=== PATIENT | male | born 1975 | race Caucasian/White ===

== ENCOUNTER 2017-06-07 18:29 | Emergency (ER) | payer OTHER ==
[~2017-06-07] VITALS: Ht 180.3 cm; Wt 89.3 kg
[~2017-06-07 18:29] MED LIST: NO MEDS
[2017-06-07 19:01] LABS: HEMATOCRIT 46.7 % (38.0-50.0); HEMOGLOBIN 15.6 G/DL (12.5-16.6); MCH 29.7 PG (29.0-34.0); MCHC 33.4 G/DL (30.0-36.0); PLATELET COUNT 234 K/uL (156-360); RBC DIS.WIDTH-CV 13.9 % (11.8-14.6); RBC DIS.WIDTH-SD 45.1 % (39-53); RED BLOOD COUNT 5.25 M/uL (4.00-5.50); WHITE BLOOD COUNT 10.1 K/uL (4.1-10.2)
[2017-06-07 19:12] LABS: CHLORIDE 107 mEq/L (99-109); POTASSIUM 4.3 mEq/L (3.7-5.4); SODIUM 138 mEq/L (136-147)
[2017-06-07 19:13] LABS: GLUCOSE 78 mg/dL (70-99)
[2017-06-07 19:17] LABS: GFR ESTIMATE (CALCULATED) > 59 mL/min/ (58.99-99999)
[2017-06-07 19:18] LABS: UREA NITROGEN (BUN) 19 mg/dL (9-23)
[2017-06-07 19:22] LABS: TROP-I INTERPRETATION NEGATIVE; TROPONIN-I < 0.01 ng/mL (0.0-0.30)
[2017-06-07] MEDS ORDERED: MOTRIN800 MG PO (21:29)
[2017-06-07] MEDS ORDERED: ZITHROMAX Z-PA250 MG PO (21:29)
[2017-06-07 21:40] VITALS: BP 132/98
== END 2017-06-07 21:41 | disposition home or self-care (01) ==
LOC: EME 18:29
PROVIDERS: Emergency Medicine
DX: R07.89 Other chest pain (principal); J40 Bronchitis, not specified as acute or chronic; F17.200 Nicotine dependence, unspecified, uncomplicated
CPT/HCPCS: 71046; 71275; 80048; 84484; 85027; 85379; 93005; 99281; 99283; J7030